=== PATIENT | female | born 1955 | race Caucasian/White ===

== ENCOUNTER 2020-08-21 12:57 | Emergency (ER) | payer OTHER, SELFPAY ==
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
[2020-08-21 13:00] VITALS: BP 155/98; PULSE 82; RESP 20; TEMP 36.9; O2SAT 97
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
[2020-08-21] MEDS: KETOROLAC 30 MG/ML VIAL (*BKC) IV PUSH (14:53)
[2020-08-21] MEDS: diazePAM INJ (*CRX) 10 MG/2 ML SYRINGE 5 MG IV PUSH (14:54)
== END 2020-08-21 16:22 | disposition home or self-care (01) ==
PROVIDERS: Emergency Provider Family Medicine
DX: S16.1XXA Strain of muscle, fascia and tendon at neck level, initial encounter (principal); M25.521 Pain in right elbow; J45.909 Unspecified asthma, uncomplicated; I10 Essential (primary) hypertension; F32.9 Major depressive disorder, single episode, unspecified; M47.812 Spondylosis without myelopathy or radiculopathy, cervical region; V49.40XA Driver injured in collision with unspecified motor vehicles in traffic accident, initial encounter
CPT/HCPCS: 72125; 73080; 96374; 96375; 99284; J1885; J3360